=== PATIENT | male | born 1980 | race Caucasian/White ===

== ENCOUNTER 2023-04-04 16:41 | Observation (INO) | payer OTHER ==
[2023-04-04] MEDS ORDERED: HYDROmorphone 1 MG/ML Syringe ONE (17:01)
[2023-04-04] MEDS ORDERED: Ondansetron 4 MG/2 ML SDV IVPUSH ONE (17:01)
[2023-04-04] MEDS ORDERED: Ondansetron 4 MG/2 ML SDV ONE (17:01)
[2023-04-04] MEDS: HYDROmorphone 1 MG/ML Syringe IVPUSH ONE ×2 (17:03→17:05)
[2023-04-04] MEDS: Sodium Chloride 0.9% 10 ML Syringe FLUSH PRN ×2 (17:03→19:39)
[2023-04-04] MEDS ORDERED: methylPREDNISolone Sodium Succinate 125 MG/2 ML SDV IVPUSH ONE (17:18)
[2023-04-04 17:41] LABS: BASOPHILS ABSOLUTE AUTO 0.02 K/uL (0.00-0.20); BASOPHILS PERCENT AUTO 0.4 % (0.0-2.0); EOSINOPHILS ABSOLUTE AUTO 0.07 K/uL (0.00-0.50); EOSINOPHILS PERCENT AUTO 1.2 % (0.0-5.0); HEMATOCRIT 46.8 % (39.0-49.0); HEMOGLOBIN 16.6 g/dL (13.1-16.8); LYMPHOCYTES ABSOLUTE AUTO 2.12 K/uL (0.50-3.50); LYMPHOCYTES PERCENT AUTO 37.7 % (10.0-50.0); MEAN CORPUSCULAR HEMOGLOBIN 32.1 pg (28.2-33.3); MEAN CORPUSCULAR HGB CONC 35.5 g/dL (31.7-36.0); MEAN CORPUSCULAR VOLUME 90.5 fL (84.0-98.0); MONOCYTES ABSOLUTE AUTO 0.51 K/uL (0.00-1.00); MONOCYTES PERCENT AUTO 9.1 % (2.0-14.0); NEUTROPHILS ABSOLUTE AUTO 2.91 K/uL (1.40-7.00); NEUTROPHILS PERCENT AUTO 51.6 % (45.0-80.0); PLATELET COUNT,PLT 233 K/uL (150-350); RED BLOOD CELL COUNT 5.17 M/uL (4.33-5.41); RED CELL DISTRIBUTION WIDTH 12.6 % (11.2-14.1); WHITE BLOOD CELL COUNT,WBC 5.6 K/uL (4.0-10.2)
[2023-04-04 17:58] LABS: ALBUMIN 4.5 g/dL (3.4-5.0); ANION GAP 11.3 meq/L (7-15); BILIRUBIN TOTAL 0.6 mg/dL (0.2-1.0); CALCIUM 9.2 mg/dL (8.5-10.1); CARBON DIOXIDE,CO2 23.7 mmol/L (21.0-32.0); CREATININE 1.1 mg/dL (0.51-1.17); EST CRCL DRUG DOSING (CG) 104.56 mL/min; POTASSIUM,K 3.8 mmol/L (3.5-5.1); PROTEIN TOTAL,TP 7.5 g/dL (6.4-8.2)
[2023-04-04] MEDS ORDERED: Morphine 2 MG/ML SYRINGE IVPUSH PRN (18:29)
[2023-04-04] MEDS: Acetaminophen 325 MG Tab PO SCH ×2 (19:32→22:25)
[2023-04-04] MEDS: Sodium Chloride 0.9% 1,000 ML IV SCH (19:32)
[2023-04-04] MEDS: Orphenadrine 60 MG/2 ML Inj IV SCH (19:33)
[2023-04-04] MEDS ORDERED: Naloxone 0.4 MG/ML SDV IVPUSH PRN (20:40)
[2023-04-04] MEDS ORDERED: Morphine 2 MG/ML SYRINGE IVPUSH ONE (20:42)
[2023-04-04 21:05] LABS: APPEARANCE,URINE CLEAR; BILIRUBIN,URINE NEGATIVE (NEGATIVE); COLOR,URINE YELLOW; GLUCOSE,URINE NEGATIVE (NEGATIVE); KETONES,URINE NEGATIVE (NEGATIVE); LEUKOCYTE ESTERASE,URINE NEGATIVE (NEGATIVE); NITRITE,URINE NEGATIVE (NEGATIVE); OCCULT BLOOD,URINE NEGATIVE (NEGATIVE); PROTEIN,URINE NEGATIVE (NEGATIVE); UROBILINOGEN,URINE 0.2 E.U./dL (0.2-1.0)
[2023-04-04] MEDS: Morphine 4 MG/ML Syringe IVPUSH PRN (22:25)
[2023-04-05] MEDS: Morphine 4 MG/ML Syringe IVPUSH PRN ×4 (00:35→12:12)
[2023-04-05] MEDS: Sodium Chloride 0.9% 10 ML Syringe FLUSH PRN ×7 (00:37→19:08)
[2023-04-05] MEDS ORDERED: methylPREDNISolone Sodium Succinate 125 MG/2 ML SDV IVPUSH ONE ×2 (00:55→08:00)
[2023-04-05] MEDS: Acetaminophen 325 MG Tab PO SCH ×6 (01:49→22:46)
[2023-04-05] MEDS: Sodium Chloride 0.9% 1,000 ML IV SCH (01:53)
[2023-04-05] MEDS: Orphenadrine 60 MG/2 ML Inj IV SCH (04:50)
[2023-04-05] MEDS ORDERED: Diazepam 5 MG Tab PO ONE (08:00)
[2023-04-05] MEDS ORDERED: methylPREDNISolone Sodium Succinate 125 MG/2 ML SDV ONE (10:51)
[2023-04-05] MEDS ORDERED: oxyCODONE 5 MG Tab PO PRN (13:16)
[2023-04-05] MEDS ORDERED: Ibuprofen 600 MG Tab PO PRN (13:18)
[2023-04-05] MEDS ORDERED: Morphine 4 MG/ML Syringe IVPUSH PRN (16:00)
[2023-04-05] MEDS ORDERED: Sennosides 8.6 MG Tab PO SCH (17:45)
[2023-04-05] MEDS: Polyethylene Glycol 3350 Powder 17 GM Packet PO SCH (17:56)
[2023-04-05] MEDS: Sennosides 8.6 MG Tab PO SCH (18:19)
[2023-04-06] MEDS: Acetaminophen 325 MG Tab PO SCH ×2 (05:49→07:47)
[2023-04-06] MEDS: Sennosides 8.6 MG Tab PO SCH (07:46)
[2023-04-06] MEDS: Polyethylene Glycol 3350 Powder 17 GM Packet PO SCH (07:46)
[2023-04-06] MEDS ORDERED: predniSONE 20 MG Tab PO ONE (08:00)
== END 2023-04-06 10:13 | disposition home or self-care (01) ==
LOC: LL.ED 16:41 → LL.MS 18:22
PROVIDERS: ADMIT Emergency Medicine; ATTEND Emergency Medicine
DX: M54.41 Lumbago with sciatica, right side (principal); E83.110 Hereditary hemochromatosis; F17.290 Nicotine dependence, other tobacco product, uncomplicated; Z88.8 Allergy status to other drugs, medicaments and biological substances
CPT/HCPCS: 36415; 72131; 80053; 81003; 85025; 96374; 96375; 96376; 97110-GP; 97162-GP; 99195; 99284-25; A9270-GY; G0378; J1170; J2270; J2360; J2405; J2930; J3360; J3490; J7030; J7512